=== PATIENT | male | born 1970 | race Caucasian/White ===

== ENCOUNTER 2017-01-14 12:38 | Emergency (ER) | payer OTHER ==
[2017-01-14 12:54] VITALS: BP 125/80; PULSE 81; TEMP 98.1; BMI 32.3
[2017-01-14] MEDS ORDERED: ACETAMINOPHEN 325 MG TABLET (FP) PO ONE (15:14)
[2017-01-14] MEDS ORDERED: ACETAMINOPHEN 325 MG TABLET (FP) ONE (15:32)
[2017-01-14 16:21] LABS: URINE APPEARANCE CLEAR; URINE BILIRUBIN NEGATIVE (NEGATIVE); URINE BLOOD 2+ (NEGATIVE); URINE COLOR YELLOW; URINE GLUCOSE (UA) NEGATIVE (NEGATIVE); URINE KETONE NEGATIVE (NEGATIVE); URINE NITRITE NEGATIVE (NEGATIVE); URINE PROTEIN NEGATIVE (NEGATIVE); URINE UROBILINOGEN NEGATIVE mg/dL (0.2-1.0)
[2017-01-14 16:24] LABS: URINE MUCUS RARE; URINE RBC 7 /hpf (0-3); URINE WBC 1 /hpf (3-5)
--- NOTE | 2017-01-14 16:37 | PDOC ---
History of Present Illness - General Chief Complaint: Pain Stated Complaint: PAIN Time Seen by Provider: 01/14/17 14:55 History Source: Patient Exam Limitations: No Limitations - History of Present Illness Travel History: No Initial Comments: 01/14/17 16:38 46-year-old male presents to the ED with intermittent right lower quadrant pain for the past few months worsening in severity over the past few days aggravated by movement and sitting. 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 Patient describes the pain as a burning sharp intermittent pain. Patient has no urinary complaints, bowel complaints, rash, or nausea. Patient also has no complaints of fever, chills or recent injury. Timing/Duration: reports: getting worse, intermittent Quality: reports: mild, moderate, burning, sharpness Abdominal Pain Onset Location: reports: RLQ Pain Radiation: reports: no radiation Activities at Onset: reports: none Aggravating Factors: improves with: None Alleviating Factors: improves with: None Past History - Travel Traveled outside of the country in the last 30 days: No Close contact w/someone who was outside of country & ill: No - Past Medical History Allergies/Adverse Reactions: Allergies Allergy/AdvReac Type Severity Reaction Status Date / Time No Known Allergies Allergy Verified 01/14/17 12:54 Home Medications: Ambulatory Orders NK [No Known Home Medication] 01/14/17 Thyroid Disease: No - Suicide/Smoking/Psychosocial Hx Smoking History: Never smoked Have you smoked in the past 12 months: No Information on smoking cessation initiated: No Hx Alcohol Use: No Drug/Substance Use Hx: No Substance Use Type: None Patient Lives Alone: No Lives with/in: spouse/SO Review of Systems - Review of Systems Able to Perform ROS?: Yes Constitutional: No: Symptoms Reported HEENTM: No: Symptoms Reported Respiratory: No: Symptoms reported Cardiac (ROS): No: Symptoms Reported ABD/GI: Yes: See HPI, Other : No: Symptoms Reported Musculoskeletal: No: Symptoms Reported Integumentary: No: Symptoms Reported Neurological: No: Symptoms reported Hematologic/Lymphatic: No: Symptoms Reported *Physical Exam - Vital Signs Last Vital Signs Temp Pulse Resp BP Pulse Ox 98.1 F 81 18 125/80 100 01/14/17 12:52 01/14/17 12:52 01/14/17 12:52 01/14/17 12:52 01/14/17 12:52 - Physical Exam General Appearance: Yes: Nourished, Appropriately Dressed. No: Apparent Distress Respiratory/Chest: positive: Lungs Clear, Normal Breath Sounds. negative: Respiratory Distress, Accessory Muscle Use Cardiovascular: positive: Regular Rhythm, Regular Rate. negative: Murmur Gastrointestinal/Abdominal: positive: Soft, Other (healed intact right lower quadrant incision). negative: Normal Bowel Sounds, Distended, Guarding, Tenderness Extremity: positive: Normal Capillary Refill. negative: Pedal Edema Integumentary: positive: Normal Color, Warm, Moist Neurologic: positive: Normal Mood/Affect, Motor Strength 5/5 (ambulatory) ED Treatment Course - RADIOLOGY Radiology Studies Ordered: Category Date Time Status ABDOMEN & PELVIS CT W/O CONTR [CT] Stat CT Scan 01/14/17 15:16 Ordered - Medications Given in the ED: ED Medications Discontinued Medications Generic Name Dose Route Start Last Admin Trade Name Freq PRN Reason Stop Dose Admin Acetaminophen 650 mg 01/14/17 15:14 01/14/17 15:39 Tylenol - PO 01/14/17 15:15 650 mg ONCE ONE Administration Medical Decision Making - Medical Decision Making 01/14/17 15:43 Patient with episodic intermittent right lower quadrant pain over his appendectomy incision. Patient on exam had no reproducible mass or tenderness. Patient states it comes and goes. Patient was ordered for urinalysis along with a dry CAT scan to visualize a possible incisional hernia versus adhesions. 01/14/17 16:44 Laboratory Tests 01/14/17 15:30 Urine Blood 2+ H Urine Nitrite Negative Ur Leukocyte Esterase Pending Urine WBC 1 01/14/17 16:45 CT shows inflammatory changes in the right lower quadrant believe to represent postoperative scarring. No discrete abscess or bowel obstruction. Patient be discharged home with recommendations to follow-up with his surgeon and take Tylenol for discomfort splinting area with movement *DC/Admit/Observation/Transfer Diagnosis at time of Disposition: Abdominal adhesions - Discharge Dispostion Disposition: HOME Condition at time of disposition: Good - Patient Instructions Printed Discharge Instructions: DI for Abdominal Pain-Adult Additional Instructions: CAT scan showed postoperative scarring without signs of a hernia. I recommend to follow-up with his surgeon and take Tylenol for discomfort, splinting area with movement.
[2017-01-14 20:29] LABS: URINE LEUK ESTERASE Negative (NEGATIVE)
== END 2017-01-14 16:55 | disposition home or self-care (01) ==
LOC: JER 12:38
DX: K66.0 Peritoneal adhesions (postprocedural) (postinfection) (principal)
CPT/HCPCS: 74176-TC; 81003; 81015; 99282-25